=== PATIENT | female | born 1990 | race Caucasian/White ===

== ENCOUNTER 2018-01-31 19:21 | Inpatient (IN) | payer BC, OTHER, SELFPAY ==
[~2018-01-31 19:21] MED LIST: Dexamethasone 20 MG/5 ML VIAL ONE; Ketorolac Tromethamine 30 MG/ML VIAL ONE; Ondansetron HCl/PF 4 MG/2 ML Vial ONE; PHENYLEPHRINE-NS 100 MCG/ML 10 ML SYRINGE ONE
[2018-01-31 19:58] VITALS: BMI 34.7
[2018-01-31] MEDS ORDERED: Betamet Acet/Betamet Na Ph 30 MG/5 ML VIAL ONE (20:14)
[2018-01-31] MEDS ORDERED: Promethazine HCl 25 MG/ML VIAL IM PRN ×2 (20:28→22:39)
[2018-01-31] MEDS ORDERED: Ondansetron HCl/PF 4 MG/2 ML Vial IVP PRN ×3 (20:28→22:39)
[2018-01-31] MEDS ORDERED: Lactated Ringer's 1,000 ML IV SCH (20:30)
[2018-01-31] MEDS ORDERED: CEFAZOLIN/Water 2 GM/20 ML SYRINGE SLOW IVP SCH (20:30)
[2018-01-31] MEDS ORDERED: Bicitra 30 ML UDCUP PO SCH (20:30)
--- NOTE | 2018-01-31 20:33 | PDOC.LDHP ---
Labor and Delivery H&P Chief complaint: loss of fluid HPI: Patinet of Dr Sandoval HX CS X2, arrives for possible SROM at 1900. I evaluated the patient within 20 minutes of arrival to triage. States no recent trauma, no VB, irregular CTX. States LOF at 1900. She is a 27 yo SAb1 in past. EGS is 34 weeks 0 days.HX GDM on diet control (A1DM)..states doing well. No recent trauma, no DE LUNA, no visual changes, no RUQ pain. Review of Systems: Complete ROS performed. GDM HX. Current gestational age (weeks): 34 (0 days) Due date: 03/14/18 Dating criteria: last menstrual period Grav: 4 Para: 2 OB History Details: SAB1, CS X 2 in past (last by me) Current complications: gestational diabetes (A1DM) Abnormal US findings: No Current medications: pre-charlotte vitamins Previous surgical history: low tranverse CS (2 prior LTCS) Allergies/Adverse Reactions: Allergies Allergy/AdvReac Type Severity Reaction Status Date / Time No Known Drug Allergies Allergy Unverified 01/31/18 19:47 Social history: none - Physical Exam Vital signs reviewed and normal: yes General: NAD Heart: RRR Lungs: CTAB Abdomen: gravid (size appropriate) FHT: category 1 [place] contractions every: Irregular - Vaginal Exam cm dilated: 1 (50) Station: -2 (Grossly ruptured clear) - Assessment L&D Assessment: premature rupture of membranes (34 weeks) - Plan Plan: admit to L&D, to OR for section, informed consent obtained, anesthesia consult for pain management (DR Sandoval aware. Awaiting Anesthesia. There is another patient with twins awaiting double set up (complete cervical exam) by the on-call resident team, we are coordinating OR availability.), other ([place] for [facility])
[2018-01-31] MEDS ORDERED: Betamet Acet/Betamet Na Ph 30 MG/5 ML VIAL IM SCH (20:45)
--- NOTE | 2018-01-31 20:46 | PDOC.EVN ---
Event Note - Event Note Event Note: Additional nursing staff called in. Anesthesia aware and pending. channel supervisor here to help coordinate care between the twins and our Repeat CS patient. [facility] given.
[2018-01-31 20:55] LABS: Hemoglobin 12.4 g/dL (12.0-16.0); Mean Corpuscular HGB CONC 34.1 g/dL (32.0-36.0); Mean Corpuscular Hemoglobin 29.7 pg (27.0-31.0); Mean Corpuscular Volume 87.1 fl (81.0-99.0); Mean Platelet Volume 7.8 fL (7.4-10.4); Platelet Count 148 thou/uL (130-400); RBC Distribution Width 12.8 % (11.5-14.5); Red Blood Cell (RBC) Count 4.19 mill/uL (4.20-5.40); White Blood Cell (WBC) Count 8.1 thou/uL (4.8-10.8)
[2018-01-31] MEDS ORDERED: Morphine PF 1 MG/ML SYR ONE (21:44)
[2018-01-31] MEDS ORDERED: Ketorolac Tromethamine 30 MG/ML VIAL ONE (21:44)
[2018-01-31] MEDS ORDERED: ePHEDrine/0.9% NaCl/PF SYRINGE 50 mg/10 ml ONE (21:44)
[2018-01-31] MEDS ORDERED: PHENYLEPHRINE-NS 100 MCG/ML 10 ML SYRINGE ONE ×2 (21:44→22:36)
[2018-01-31] MEDS ORDERED: Fentanyl 100 MCG/2 ML VIAL ONE (21:44)
[2018-01-31] MEDS ORDERED: Dexamethasone 4 mg/ml Vial ONE (21:44)
[2018-01-31] MEDS ORDERED: Ondansetron HCl/PF 4 MG/2 ML Vial ONE (21:44)
[2018-01-31] MEDS ORDERED: Oxytocin 10 UNITS/ML VIAL ONE (21:45)
[2018-01-31] MEDS ORDERED: Bupivacaine 0.75% W/DEXTROSE 8.25% 2 ML AMP ONE (21:58)
[2018-01-31] MEDS ORDERED: Lidocaine 1% PF 5 ML VIAL ONE (21:58)
[2018-01-31] MEDS ORDERED: HYDROcodone/Acetaminophen 5/325 mg Tablet PO PRN ×2 (22:00)
[2018-01-31] MEDS ORDERED: Simethicone Chewable 80 MG TAB PO PRN (22:00)
[2018-01-31] MEDS ORDERED: LR w/ Pitocin 40 units/1000 ML BAG IV SCH (22:00)
[2018-01-31] MEDS ORDERED: Lanolin Ointment 7 GM TUBE TOP PRN (22:00)
[2018-01-31] MEDS ORDERED: Ibuprofen 800 MG TAB PO SCH (22:00)
--- NOTE | 2018-01-31 22:36 | PDOC.EVN ---
Event Note - Event Note Event Note: CS assist note: assisted Dr thomas at repeat CS, repeat LTCS under lolitaiel..tiffanie delaney male.Please see full note by Jaime
[2018-01-31] MEDS ORDERED: diphenhydrAMINE 50 MG/ML VIAL IVP PRN (22:39)
[2018-01-31] MEDS ORDERED: Meperidine HCl/PF 25 MG/ML VIAL SLOW IVP PRN (22:39)
[2018-01-31] MEDS ORDERED: Promethazine HCl 25 MG SUPP PR PRN (22:39)
[2018-01-31] MEDS ORDERED: Ketorolac Tromethamine 30 MG/ML VIAL IVP PRN (22:39)
[2018-01-31] MEDS ORDERED: Naloxone HCl 0.4 mg/ml Vial IVP PRN ×2 (22:39)
[2018-01-31] MEDS ORDERED: Eucerin (Mineral Oil/Petrolatum,White) 30 gm Jar TOP PRN (22:39)
[2018-01-31] MEDS ORDERED: HYDROmorphone 2 MG/ML VIAL SLOW IVP PRN (22:39)
[2018-01-31] MEDS ORDERED: Naloxone HCl 0.4 mg/ml Vial IV PRN (22:39)
[2018-01-31] MEDS ORDERED: Ketorolac Tromethamine 30 MG/ML VIAL IVP SCH (22:45)
[2018-01-31] MEDS ORDERED: Communication Order-Pharmacy FS SCH (22:45)
--- NOTE | 2018-01-31 22:45 | PDOC.OPDEL ---
OB Operative/Delivery Note Delivery Dr/Surgeon: SILVER Assist: JUAREZ Pre-Delivery Diagnosis: breech, ruptured membrane Procedure/Post Delivery Dx: repeat low transverse CS Weeks gestation: 34 Anesthesia: spinal - Findings A Sex: male Weight: 5 lb 3 oz - Additional Findings/Plan Placenta delivered: manual removal findings: low transverse hysterotomy without extension, normal uterus, normal tubes, normal ovaries Estimated blood loss: 600ML Compilations/Other Findings: DELIVERED FROM NANDINI BREECH, NO COMPLICATIONS Post delivery plan: routine recovery
[2018-01-31 23:09] LABS: Hep B Surf Ag Non-Reactive S/CO (NonReactive)
--- NOTE | 2018-02-01 05:53 | OP ---
DATE OF PROCEDURE: 01/31/2018 PREOPERATIVE DIAGNOSES: 1. A 34 weeks gestation with premature rupture of membranes. 2. Previous section x2. 3. Lewis breech presentation. 4. Gestational diabetes POSTOPERATIVE DIAGNOSES: Status post repeat low transverse section. PROCEDURES PERFORMED: Repeat low transverse section. SURGEON: Hubert Sandoval D.O. INSULATION CUPOLA OPERATOR: González Young M.D. ANESTHESIA: Spinal per Dr. Swartz. COMPLICATIONS: None. ESTIMATED BLOOD LOSS: 600 mL. INTRAOPERATIVE FINDINGS: 1. Vigorous male , 5 pounds 3 ounces, to NICU with Apgars pending at the time of dictation. 2. Low transverse hysterotomy without extension. 3. Surgical sites hemostatic. 4. Normal appearing uterus, tubes, and ovaries bilaterally. 5. Clear amniotic fluid and placenta delivered intact. INDICATIONS FOR PROCEDURE: Ms. Fatimah Wood presented to Labor and Delivery at 34 weeks with a known history of 2 previous sections with rupture of membranes as her presenting complaint, which was confirmed on her examination in Labor and Delivery. The patient was given a dose of steroids and counseled and consented for an indicated section. PROCEDURE DETAILS: The patient was taken back to the OR with IV fluids running. Once she was in the OR, spinal anesthesia was obtained. The patient was placed in dorsal supine position with a left lateral tilt. The abdomen was then prepped and draped in normal fashion for section. Prior to prepping the abdomen, a Grady catheter was placed using sterile technique as well as SCDs to the lower extremities and the patient received a prophylactic dose of Ancef 2 grams. Once the surgeons were scrubbed in anesthesia was tested and found to be adequate. A Pfannenstiel incision skin incision was made with the scalpel, skin incision was carried down through subcutaneous tissue to the fascia. Once the fascia was reached, it was incised midline and extended superolaterally with curved Wallace scissors. Bashir clamps were placed at the superior border of the fascia, which was sharply and bluntly dissected off the rectus abdominis muscles in both caudad and cephalad direction allowing adequate space for delivery of the . The rectus muscles were relaxed in the midline and the peritoneum was visualized, bluntly entered and stretched laterally. An Adam O retractor was placed into the peritoneal cavity for retraction, visualization and protection of the wound. A bladder flap was created and the bladder was dissected away from the planned hysterotomy site. Hysterotomy was made with a scalpel. Uterus was bluntly entered and stretched using the Ramirez maneuver. Clear amniotic fluid was noted. 's buttock was noted to be the presenting part, with gentle fundal pressure, the buttocks was brought down to the hysterotomy. The infant's feet were grasped and gently pulled through the hysterotomy with delivery of the infant's body and delivery of the shoulder and the head with gentle rotation. The breech delivery was uncomplicated. The nose and mouth were suctioned. The cord was doubly clamped and cut and the was handed off to the NICU nurses in attendance for delivery. The cord blood was collected. The placenta was delivered. Uterus was exteriorized, massaged to firm, and cleared of clot and debris. The uterus was then replaced into the abdominal cavity. Hysterotomy was inspected and closed with Monocryl suture in a running locked fashion. A second layer of Monocryl suture was placed in a running fashion to reapproximate the uterine serosa and for additional hemostasis. After the hysterotomy was closed and hemostasis was assured, the hysterotomy and pericolic gutters were irrigated and suctioned dry. No areas of bleeding were noted. The Adam O retractor was removed. The fascia and the rectus muscles were examined and no bleeding noted. The fascia was closed with PDS suture from corner to corner and tied separately in the midline. Subcutaneous tissue was irrigated and dried. No areas of bleeding were noted. Subcutaneous tissue was reapproximated with plain gut suture. The skin was closed with 4-0 Monocryl and dressed with Dermabond dressing. The patient was then cleaned, dried and taken to recovery room in good condition. RIAN
[2018-02-01] MEDS ORDERED: Varicella virus, LIVE 0.5 ML VIAL SC ONE ×2 (06:57→09:00)
[2018-02-01] MEDS ORDERED: Adacel (T-DAP) 0.5 ML VIAL IM ONE ×2 (06:57→09:00)
[2018-02-01] MEDS ORDERED: Measles/Mumps/Rubella 10 MCG/0.5 ML VIAL SC ONE ×2 (06:57→09:00)
[2018-02-01] MEDS ORDERED: Lanolin Ointment 7 GM TUBE TOP PRN (06:57)
[2018-02-01] MEDS ORDERED: diphenhydrAMINE 25 MG CAP PO PRN (06:57)
[2018-02-01] MEDS ORDERED: Prenatal Vitamin 1 TAB PO SCH (09:00)
[2018-02-01] MEDS: Docusate Calcium (SURFAK) 240 MG CAP PO SCH ×2 (09:12→20:07)
[2018-02-01] MEDS: Simethicone Chewable 80 MG TAB PO PRN (09:12)
[2018-02-01] MEDS: Prenatal Vitamin 1 TAB PO SCH (09:12)
--- NOTE | 2018-02-01 10:30 | PDOC.PP ---
Post Progress Note Post Day #: 1 Subjective: pumping, minimal discomfort PO intake tolerated: yes Flatus: yes Ambulation: no Vital Signs (12 hours) Temp Pulse Resp BP Pulse Ox 02/01/18 03:45 97.7 F 48 L 18 93/52 L 99 02/01/18 02:20 97.6 F 51 L 18 84/51 L 99 02/01/18 01:15 98.0 F 67 18 90/55 L 98 02/01/18 00:35 97.2 F L 56 L 18 98 Weight Weight 178 lb - Physical Examination General: NAD Respiratory: clear to auscultation bilaterally, non-labored breathing Abdominal: no distention, appropriately TTP Fundus firm & at: below umb Extremities: negative homans (B) Skin: CS incision dry & intact (dressing dry), no rash Neurological: no gross focal deficits Psychiatric: A&Ox3, normal affect Result Diagrams: 01/31/18 20:50 Additional Labs: Post Labs Blood Type A POSITIVE 01/31/18 20:50 Hep Bs Antigen Non-Reactive S/CO (NonReactive) 01/31/18 20:50 (1) Gestational diabetes Code(s): O24.419 - GESTATIONAL DIABETES MELLITUS IN , UNSP CONTROL Status: Acute (2) premature rupture of membranes Code(s): O42.919 - PRETRM SALVADOR ROM, UNSP TIME BETW RUPT AND ONST LABR, UNSP TRI Status: Acute (3) Status post repeat low transverse section Code(s): Z98.89 - OTHER SPECIFIED POSTPROCEDURAL STATES * DO NOT USE * Status : Acute - Assessment/Plan POD #1 sp RCS for PPROM @ 34 weeks and breech presentation, prev CS x 2. Doing well, continue post op care.
[2018-02-01] MEDS: Ibuprofen 800 MG TAB PO SCH (15:08)
[2018-02-01] MEDS: Acetaminophen/Codeine 30-300mg Tablet PO PRN (20:07)
[2018-02-02] MEDS: Ibuprofen 800 MG TAB PO SCH ×5 (00:28→21:57)
[2018-02-02] MEDS: Acetaminophen/Codeine 30-300mg Tablet PO PRN ×4 (08:00→20:42)
[2018-02-02] MEDS: Prenatal Vitamin 1 TAB PO SCH (08:00)
[2018-02-02] MEDS: Docusate Calcium (SURFAK) 240 MG CAP PO SCH ×2 (08:00→20:42)
[2018-02-02 10:20] LABS: Hemoglobin 10.2 g/dL (12.0-16.0); Mean Corpuscular HGB CONC 33.4 g/dL (32.0-36.0); Mean Corpuscular Hemoglobin 30.7 pg (27.0-31.0); Mean Corpuscular Volume 91.7 fl (81.0-99.0); Mean Platelet Volume 8.5 fL (7.4-10.4); Platelet Count 155 thou/uL (130-400); RBC Distribution Width 13.3 % (11.5-14.5); Red Blood Cell (RBC) Count 3.32 mill/uL (4.20-5.40); White Blood Cell (WBC) Count 9.3 thou/uL (4.8-10.8)
--- NOTE | 2018-02-02 12:12 | PDOC.PP ---
Post Progress Note Post Day #: 2 PO intake tolerated: yes Flatus: yes Ambulation: yes Vital Signs (12 hours) Temp Pulse Resp BP BP 02/02/18 11:30 98.1 F 73 18 98/59 L 02/02/18 07:40 97.6 F 64 18 02/02/18 07:35 97.6 F 64 18 91/53 L 02/02/18 03:30 97.5 F L 60 18 92/50 L Weight Weight 178 lb - Physical Examination General: NAD Cardiovascular: RRR Respiratory: non-labored breathing Fundus firm & at: below umbilicus Neurological: no gross focal deficits Psychiatric: A&Ox3 Result Diagrams: 02/02/18 10:11 Additional Labs: Post Labs Blood Type A POSITIVE 01/31/18 20:50 Hep Bs Antigen Non-Reactive S/CO (NonReactive) 01/31/18 20:50 (1) delivery delivered Code(s): O82 - ENCOUNTER FOR DELIVERY WITHOUT INDICATION Status: Acute - Assessment/Plan PPD2 VSSAF (hypotension overnight, not tachycardic, no sx and resolved today). Limited exam due to pt holding infant in NICU. Pt reports normal appearing incision and minimal pain with palpation. Meeting post /op requirements. Plan for d/c 1-2 days due to infant in NICU.
[2018-02-02] MEDS: Simethicone Chewable 80 MG TAB PO PRN ×2 (14:27→20:48)
[2018-02-03] MEDS: Acetaminophen/Codeine 30-300mg Tablet PO PRN ×3 (04:43→14:22)
[2018-02-03] MEDS: Ibuprofen 800 MG TAB PO SCH ×2 (06:13→14:22)
[2018-02-03 08:10] VITALS: BP 98/51; TEMP 98.1
[2018-02-03] MEDS: Simethicone Chewable 80 MG TAB PO PRN (09:02)
[2018-02-03] MEDS: Docusate Calcium (SURFAK) 240 MG CAP PO SCH (09:02)
[2018-02-03] MEDS: Prenatal Vitamin 1 TAB PO SCH (09:02)
--- NOTE | 2018-02-03 09:57 | PDOC.PP ---
Post Progress Note Post Day #: 3 Subjective: baby in NICU, pumping, minimal pain w activity but controlled w po meds, sammie diet, BM today PO intake tolerated: yes Flatus: yes Ambulation: yes Vital Signs (12 hours) Temp Pulse Resp BP 02/03/18 08:10 98.1 F 74 20 98/51 L 02/03/18 00:00 97.7 F 68 20 Weight Weight 178 lb - Physical Examination General: NAD Respiratory: non-labored breathing Abdominal: no distention Fundus firm & at: below umb Extremities: negative homans (B) Skin: CS incision dry & intact Psychiatric: A&Ox3, normal affect Result Diagrams: 02/02/18 10:11 Additional Labs: Post Labs Blood Type A POSITIVE 01/31/18 20:50 Hep Bs Antigen Non-Reactive S/CO (NonReactive) 01/31/18 20:50 (1) Gestational diabetes Code(s): O24.419 - GESTATIONAL DIABETES MELLITUS IN , UNSP CONTROL Status: Acute (2) premature rupture of membranes Code(s): O42.919 - PRETRM SALVADOR ROM, UNSP TIME BETW RUPT AND ONST LABR, UNSP TRI Status: Acute (3) Status post repeat low transverse section Code(s): Z98.89 - OTHER SPECIFIED POSTPROCEDURAL STATES * DO NOT USE * Status : Acute - Assessment/Plan A/P: POD #3 sp RCS @ 34 weeks for PPROM. Pt undecided for DC vs B and B today, will consider and let us know later today.
== END 2018-02-03 19:00 | disposition home or self-care (01) | DRG 766 ==
LOC: L&D/OP 19:21 → L&D 21:53 → 3SW 02-01 00:27
PROVIDERS: ADMIT Obstetrics & Gynecology; ATTEND Obstetrics & Gynecology
PROC: 10D00Z1 Extraction of Products of Conception, Low, Open Approach (ICD-10-PCS; principal; 2018-01-31)
DX: O60.14X0 Preterm labor third trimester with preterm delivery third trimester, not applicable or unspecified (principal); O24.420 Gestational diabetes mellitus in childbirth, diet controlled; O34.211 Maternal care for low transverse scar from previous cesarean delivery; O32.1XX0 Maternal care for breech presentation, not applicable or unspecified; Z3A.34 34 weeks gestation of pregnancy; Z37.0 Single live birth
CPT/HCPCS: 36415; 51702; 85027; 86850; 86900; 86901; 87340; 99285; A4216; J0702; J1100; J1885; J2001; J2274; J2405; J2590; J3010; J3490

== ENCOUNTER 2020-07-10 05:38 | Inpatient (IN) | payer OTHER ==
[2020-07-10] MEDS ORDERED: CEFAZOLIN 2 GM in Premix Bag 1 BAG IVPB SCH (06:17)
[2020-07-10] MEDS ORDERED: Bicitra 30 ML UDCUP PO SCH (06:17)
[2020-07-10] MEDS ORDERED: Lactated Ringer's 1,000 ML IV SCH (06:17)
[2020-07-10] MEDS ORDERED: Ondansetron PF 4 MG/2 ML Vial IVP PRN ×2 (06:17→09:27)
[2020-07-10] MEDS ORDERED: Promethazine HCl 25 MG/ML VIAL IM PRN ×3 (06:17→09:27)
[2020-07-10] MEDS ORDERED: hydrALAZINE 20 MG/ML VIAL SLOW IVP PRN ×2 (06:17→08:40)
[2020-07-10 06:30] VITALS: BMI 36.5
[2020-07-10 06:59] LABS: Hemoglobin 13.1 g/dL (12.0-16.0); Mean Corpuscular HGB CONC 34.6 g/dL (32.0-36.0); Mean Corpuscular Hemoglobin 32.8 pg (27.0-31.0); Mean Corpuscular Volume 94.8 fL (78.0-98.0); Mean Platelet Volume 8.7 fL (7.4-10.4); Platelet Count 157 thou/uL (130-400); Red Blood Cell (RBC) Count 3.99 mill/uL (4.20-5.40); White Blood Cell (WBC) Count 7.1 thou/uL (4.8-10.8)
[2020-07-10] MEDS ORDERED: Ondansetron PF 4 MG/2 ML Vial ONE (07:16)
[2020-07-10] MEDS ORDERED: Oxytocin 10 UNITS/ML VIAL ONE (07:17)
[2020-07-10 07:56] LABS: Syphilis Antibody Nonreactive (Nonreactive); Syphilis Antibody Index 0.17 S/CO (<1.00 Non-Reactive)
[2020-07-10 07:57] LABS: HBSAg Index 0.16 S/CO (0-0.99); Hep B Surf Ag Non-Reactive S/CO (NonReactive)
[2020-07-10] MEDS ORDERED: EPHEDRINE 25 MG/5 ML SYRINGE ONE ×3 (08:01→08:06)
[2020-07-10] MEDS ORDERED: Bisacodyl 10 MG SUPP PR PRN (08:40)
[2020-07-10] MEDS ORDERED: HYDROcodone/Acetaminophen 5/325 mg Tablet PO PRN ×2 (08:40)
[2020-07-10] MEDS ORDERED: Acetaminophen 325 MG TAB PO PRN (08:40)
[2020-07-10] MEDS ORDERED: Misoprostol 200 MCG TAB PR PRN (08:40)
[2020-07-10] MEDS ORDERED: Lanolin Ointment 7 GM TUBE TOP PRN (08:40)
--- NOTE | 2020-07-10 08:43 | PDOC.OPDEL ---
OB Operative/Delivery Note Delivery Dr/Surgeon: Junior Assist: Tom Pre-Delivery Diagnosis: scheduled section, other (Dichorionic twins at 38 weeks. prior c/s x3.) Weeks gestation: 38 Anesthesia: spinal - Findings A Sex: female Weight: 7 lb 13 oz - 1 min: 9 - 5 min: 9 - Additional Findings/Plan Placenta delivered: manual removal findings: low transverse hysterotomy without extension Estimated blood loss: 750ml Post delivery plan: routine recovery
[2020-07-10] MEDS ORDERED: Promethazine HCl 25 MG/ML VIAL SLOW IVP PRN (09:27)
[2020-07-10] MEDS ORDERED: Naloxone HCl 0.4 mg/ml Vial IV PRN (09:27)
[2020-07-10] MEDS ORDERED: Naloxone HCl 0.4 mg/ml Vial IVP PRN ×2 (09:27)
[2020-07-10] MEDS ORDERED: Ketorolac Tromethamine 30 MG/ML VIAL IVP PRN (09:27)
[2020-07-10] MEDS ORDERED: Ondansetron HCl/PF 4 MG/2 ML Vial IVP PRN (09:27)
[2020-07-10] MEDS ORDERED: Promethazine HCl 25 MG SUPP PR PRN (09:27)
[2020-07-10] MEDS ORDERED: Communication Order-Pharmacy FS SCH (09:30)
[2020-07-10] MEDS ORDERED: Ketorolac Tromethamine 30 MG/ML VIAL ONE (10:26)
[2020-07-10] MEDS: diphenhydrAMINE 50 MG/ML VIAL IVP PRN ×2 (13:05→20:19)
[2020-07-10] MEDS: Docusate Calcium (SURFAK) 240 MG CAP PO SCH ×2 (13:38→21:32)
[2020-07-10] MEDS: Prenatal Vitamin 1 TAB PO SCH (13:39)
[2020-07-10] MEDS: Ibuprofen 800 MG TAB PO SCH ×2 (15:05→21:29)
[2020-07-10] MEDS ORDERED: Sodium Chloride 0.9% 10 ML ONE (20:14)
[2020-07-11] MEDS: Ibuprofen 800 MG TAB PO SCH ×3 (04:25→21:52)
--- NOTE | 2020-07-11 05:57 | OP ---
DATE OF PROCEDURE: 07/10/2020 PREOPERATIVE DIAGNOSES: 1. A 29-year-old white female G4, P3, at 38 weeks. 2. Dichorionic-diamniotic twin gestation. 3. Prior section x3. POSTOPERATIVE DIAGNOSES: 1. A 29-year-old white female G4, P3, at 38 weeks. 2. Dichorionic-diamniotic twin gestation. 3. Prior section x3. PROCEDURE PERFORMED: Repeat low-transverse section without extension. LEAD SOFTWARE TEST ENGINEER SURGEON: Jessica Santos PA-C ANESTHESIA: Spinal block. ESTIMATED BLOOD LOSS: 750 mL. COMPLICATIONS: None. COUNTS: Correct x2. ANTIBIOTICS: Ancef 2 g on-call to OR. FINDINGS: 1. Twin A, male, tiffanie breech presentation, Apgars 8 and 9. weight 6 pounds 13 ounces. Clear amniotic fluid. 2. Twin B, female, vertex presentation, Apgars 9 and 9. weight 7 pounds 9 ounces. Clear amniotic fluid. 3. Normal-appearing uterus, tubes, and ovaries. 4. Clear urine present in Grady catheter postprocedure. DISPOSITION: Recovery room, stable. DESCRIPTION OF PROCEDURE: The patient previously received informed consent in regard to surgery. She was taken back to the operating room, where she received a spinal block without complications. She was then placed in the supine position, prepped in usual sterile fashion. A Pfannenstiel incision was made through the previous scar site. This was carried down to the fascia. Fascia was nicked in the midline. Fascial incision was extended bilaterally with use of curved Wallace scissors. The rectus muscle bellies were then dissected off the rectus fascia. Peritoneal cavity was entered and peritoneal incision was extended. A large Adam O retractor was placed. A 2-cm hysterotomy incision was made above the vesicouterine peritoneal fold. It was extended via finger fractionation. The amniotic bag was ruptured and the baby was delivered. First the buttocks and then each leg was atraumatically delivered with a corkscrewing technique, delivering both arms and with head flexion, the head was easily delivered. The cord was doubly clamped and cut and the baby was handed to the Pediatric Team in attendance. Then, the cord blood was obtained. Twin B was noted to be in vertex presentation. Amniotic bag was ruptured. Clear fluid was noted. The baby was easily delivered vertex and the mouth and nares of the infant was bulb suctioned on the abdomen. The cord was doubly clamped and cut and baby B was handed off to the Pediatric Team. Cord blood was obtained. Placentas were manually extracted. Uterus was externalized and curetted of any remaining placental fragments with a dry laparotomy sponge. Hysterotomy incision was closed in double-layer closure with #1 Monocryl running locking fashion. Additional [id number] stitch on the left corner of the hysterotomy incision with a #1 chromic suture was placed for hemostasis. The pelvis was irrigated and suctioned. Adam O retractor was removed. Again, hemostasis was confirmed. The rectus muscle bellies were noted to be hemostatic prior to fascial approximation. The fascia was closed with 0 PDS suture x2 in running continuous fashion. Subcutaneous tissue was irrigated and noted to be hemostatic. It was approximated with 3-0 plain gut suture in running continuous fashion and 4-0 Monocryl was utilized to close the skin. Surgery was terminated. No anesthetic or surgical complications occurred. Job ID: [id number]
[2020-07-11 06:41] LABS: Hemoglobin 10.6 g/dL (12.0-16.0); Mean Corpuscular HGB CONC 32.6 g/dL (32.0-36.0); Mean Corpuscular Hemoglobin 31.4 pg (27.0-31.0); Mean Corpuscular Volume 96.3 fL (78.0-98.0); Mean Platelet Volume 8.8 fL (7.4-10.4); Platelet Count 136 thou/uL (130-400); RBC Distribution Width 15.3 % (11.5-14.5); Red Blood Cell (RBC) Count 3.37 mill/uL (4.20-5.40); White Blood Cell (WBC) Count 9.3 thou/uL (4.8-10.8)
--- NOTE | 2020-07-11 08:05 | PDOC.PP ---
Post Progress Note Post Day #: 1 Subjective: doing well sp planned CS for twins PO intake tolerated: yes Flatus: yes Ambulation: yes Vital Signs (12 hours) Temp Pulse Resp BP Pulse Ox 07/11/20 07:52 98.3 F 64 20 80/51 L 97 07/11/20 02:00 97.9 F 70 18 100/56 L Weight Weight 187 lb - Physical Examination General: NAD Skin: CS incision dry & intact (dressing on, clean and dry), no rash Psychiatric: A&Ox3, normal affect Result Diagrams: 07/11/20 06:24 Additional Labs: Post Labs Hep Bs Antigen Non-Reactive S/CO (NonReactive) 07/10/20 06:45 Blood Type A POSITIVE 07/10/20 06:45 - Assessment/Plan POD1 doing well sp CS. Possible DC tomorrow.
[2020-07-11] MEDS ORDERED: Adacel (T-DAP) 0.5 ML SYRINGE IM ONE (08:40)
[2020-07-11] MEDS: Docusate Calcium (SURFAK) 240 MG CAP PO SCH ×2 (09:21→21:52)
[2020-07-11] MEDS: HYDROcodone/Acetaminophen 5/325 mg Tablet PO PRN ×4 (09:21→21:52)
[2020-07-11] MEDS: Prenatal Vitamin 1 TAB PO SCH (09:21)
[2020-07-11] MEDS: Simethicone Chewable 80 MG TAB PO PRN ×2 (17:44→21:52)
--- NOTE | 2020-07-12 00:30 | PDOC.PP ---
Post Progress Note Post Day #: POD1 Subjective: Doing well, no c/o. PO intake tolerated: yes Flatus: yes Ambulation: yes Vital Signs (12 hours) Temp Pulse Resp BP Pulse Ox 07/11/20 20:13 98.2 F 62 12 115/64 100 07/11/20 17:14 98.1 F 68 18 90/65 Weight Weight 84.822 kg - Physical Examination General: NAD Respiratory: non-labored breathing Abdominal: no distention Skin: CS incision dry & intact Neurological: no gross focal deficits Psychiatric: normal affect Result Diagrams: 07/11/20 06:24 Additional Labs: Post Labs Hep Bs Antigen Non-Reactive S/CO (NonReactive) 07/10/20 06:45 Blood Type A POSITIVE 07/10/20 06:45 - Assessment/Plan Doing well s/p repeat C/s for twins. Advance diet Ambulate. Anticipate home in AM.
[2020-07-12] MEDS: HYDROcodone/Acetaminophen 5/325 mg Tablet PO PRN ×2 (01:46→09:44)
[2020-07-12] MEDS: Ibuprofen 800 MG TAB PO SCH (06:15)
[2020-07-12 08:42] VITALS: BP 90/56; TEMP 98.7
[2020-07-12] MEDS: Prenatal Vitamin 1 TAB PO SCH (09:40)
[2020-07-12] MEDS: Docusate Calcium (SURFAK) 240 MG CAP PO SCH (09:41)
[2020-07-12] MEDS: Simethicone Chewable 80 MG TAB PO PRN (09:41)
== END 2020-07-12 14:20 | disposition home or self-care (01) | DRG 788 ==
LOC: L&D 05:38 → 3SW 12:54
PROVIDERS: ADMIT Obstetrics & Gynecology; ATTEND Obstetrics & Gynecology
PROC: 10D00Z1 Extraction of Products of Conception, Low, Open Approach (ICD-10-PCS; principal; 2020-07-10)
DX: O30.043 Twin pregnancy, dichorionic/diamniotic, third trimester (principal); Z3A.38 38 weeks gestation of pregnancy; Z37.2 Twins, both liveborn; O34.211 Maternal care for low transverse scar from previous cesarean delivery; Z20.828 Contact with and (suspected) exposure to other viral communicable diseases
CPT/HCPCS: 36415; 51702; 85027; 86780; 86850; 86900; 86901; 87340; J0690; J1200; J1885; J2270; J2405; J2590

== ENCOUNTER 2025-06-21 12:41 | Outpatient (CLI) | payer BC | END 2025-06-21 12:42 | disposition home or self-care (01) | LOC: SCSMRI 12:41 | PROVIDERS: ATTEND Physician Assistant | DX: R19.09 Other intra-abdominal and pelvic swelling, mass and lump (principal); N80.101 Endometriosis of right ovary, unspecified depth; D25.9 Leiomyoma of uterus, unspecified; N83.201 Unspecified ovarian cyst, right side; D25.0 Submucous leiomyoma of uterus; N83.01 Follicular cyst of right ovary; N83.02 Follicular cyst of left ovary | CPT/HCPCS: 72197 ==